=== PATIENT | female | born 1950 | race Caucasian/White ===

== ENCOUNTER 2023-10-22 12:32 | Outpatient (CLI) | payer MEDICARE | END 2023-10-22 12:33 | disposition home or self-care (01) | LOC: CSHULT 12:32 | PROVIDERS: ATTEND Internal Medicine | DX: R05.3 Chronic cough (principal); I27.20 Pulmonary hypertension, unspecified; R94.2 Abnormal results of pulmonary function studies; I51.9 Heart disease, unspecified; I51.7 Cardiomegaly; I38 Endocarditis, valve unspecified | CPT/HCPCS: 93306; 94010; 94726; 94729; 94760 ==